=== PATIENT | female | born 1995 | race Caucasian/White ===

== ENCOUNTER 2018-11-12 21:12 | Emergency (ER) | payer SELFPAY ==
[~2018-11-12] VITALS: Ht 144.8 cm; Wt 52.2 kg
[2018-11-12 21:24] VITALS: BP 120/89
--- NOTE | 2018-11-12 21:27 | NUR ---
TO LOBBY A/W BED AMBULATORY
--- NOTE | 2018-11-12 23:32 | NUR ---
PT AMBULATED TO ER BED 07
[2018-11-12 23:45] VITALS: BP 120/89
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
== END 2018-11-12 23:56 | disposition home or self-care (01) ==
LOC: MED 21:12
DX: S60.512A Abrasion of left hand, initial encounter (principal); Z88.2 Allergy status to sulfonamides; W54.0XXA Bitten by dog, initial encounter; Y93.01 Activity, walking, marching and hiking; Y92.511 Restaurant or cafe as the place of occurrence of the external cause; Y99.8 Other external cause status
CPT/HCPCS: 99283